=== PATIENT | female | born 1960 | race Two or more races ===

== ENCOUNTER → 2020-07-26 13:48 | Outpatient (CLI) | payer OTHER | END | disposition home or self-care (01) | LOC: PPH VACUNA 13:48 | DX: Z23 Encounter for immunization (principal) ==

== ENCOUNTER 2021-03-06 14:30 | Outpatient (CLI) | payer OTHER | END 2021-03-06 14:40 | disposition home or self-care (01) | LOC: PPH VACUNA 14:30 | PROVIDERS: ATTEND Emergency Medicine Pediatric Emergency Medicine | DX: Z23 Encounter for immunization (principal) ==